=== PATIENT | male | born 1985 | race American Indian/Alaskan Native ===

== ENCOUNTER 2017-05-22 07:49 | Emergency (ER) | payer SELFPAY ==
[2017-05-22 07:59] VITALS: BP 118/71
[2017-05-22] MEDS ORDERED: BSS 1 DROPS, TETRACAINE 0.5% 1 DROPS, FUL-GLO 1 MG OD ONE ×2 (08:30→14:00)
[2017-05-22] MEDS ORDERED: TETRACAINE 0.5% ONE (08:47)
[2017-05-22] MEDS ORDERED: BSS ONE (08:47)
[2017-05-22] MEDS ORDERED: FUL-GLO OP ONE (08:47)
--- NOTE | 2017-05-22 09:10 | Emergency Department Report ---
HPI - General Chief Complaint: Eye Problems Time Seen by Provider: 05/22/17 08:53 - HPI HPI: Room 24 The patient is a 32-year-old male presenting with a chief complaint of left eye pain and swelling. The patient states last night approximately 19:00 last night he was drilling a light fixture when he believes a metal shaving fell down into his left eye. Patient states he attempted to rinse it out at home and then went to sleep. The patient states when he awakened this morning there was pain and swelling in the left eye Location: Left eye Duration: Noticed upon awakening this morning, see above Quality: Pain Severity: Moderate Modifying factors: [see above] Context: [see above] Mode of transportation: [not driving] ED Past Medical Hx - Past Medical History Previous Medical History?: No - Surgical History Past Surgical History?: No - Family History Family history: no significant - Social History Smoking Status: Current Every Day Smoker (1/3 pack per day) Substance Use Type: None (denies illicit drug use), Alcohol (occasional) - Medications Home Medications: Home Medications Medication Instructions Recorded Confirmed Last Taken Type Gentamicin 0.3% Ophth Soln 2 drops OP Q4H #5 ml 05/22/17 Unknown Rx HYDROcodone/APAP 5-325 [Ensign 1 - 2 each PO Q6HR PRN #10 tablet 05/22/17 Unknown Rx 5/325] Ketorolac Tromethamin 0.4%(Nf) 1 drop OS QID PRN #5 ml 05/22/17 Unknown Rx [Acular Ls 0.4% Ophth Nano] ED Review of Systems ROS: Stated complaint: LEFT EYE PAIN Other details as noted in HPI Comment: All other systems reviewed and negative Constitutional: denies: chills, fever Eyes: eye pain, vision change ENT: denies: ear pain, throat pain Respiratory: denies: cough, shortness of breath, wheezing Cardiovascular: denies: chest pain, palpitations Endocrine: no symptoms reported Gastrointestinal: denies: abdominal pain, nausea, diarrhea Genitourinary: denies: urgency, dysuria Musculoskeletal: denies: back pain, joint swelling, arthralgia Skin: denies: rash, lesions Neurological: denies: headache, weakness, paresthesias Psychiatric: denies: anxiety, depression Hematological/Lymphatic: denies: easy bleeding, easy bruising Physical Exam - Physical Exam Vital Signs: Vital Signs 05/22/17 07:56 Temperature 97.6 F Pulse Rate 67 Respiratory 16 Rate Blood Pressure 118/71 O2 Sat by Pulse 100 Oximetry Physical Exam: GENERAL: The patient is well-developed well-nourished male lying on stretcher with obvious swelling to left thigh not appear to be in acute distress. [] HEENT: Normocephalic. Atraumatic. Extraocular motions are intact. Fluorescein uptake in the 2 o'clock position of the left cornea. There is no streaming fluorescein. There is no hyphema. There is no hypopyon. Sclerae injected diffusely. There is inferior and superior palpebral edema. No foreign body seen NECK: Trachea midline CHEST/LUNGS: There is no respiratory distress noted. ABDOMEN: There is no abdominal distention. SKIN: There is left superior and inferior palpebral edema. There is no diaphoresis. NEURO: The patient is awake, alert, and oriented. The patient is cooperative. The patient has normal speech MUSCULOSKELETAL:There is no evidence of acute injury. ED Course Vital Signs 05/22/17 07:56 Temperature 97.6 F Pulse Rate 67 Respiratory 16 Rate Blood Pressure 118/71 O2 Sat by Pulse 100 Oximetry ED Medical Decision Making - Differential Diagnosis corneal abrasion, foreign body Critical care attestation.: If time is entered above; I have spent that time in minutes in the direct care of this critically ill patient, excluding procedure time. ED Disposition Clinical Impression: Left corneal abrasion Disposition: DC-01 TO HOME OR SELFCARE Is pt being admited?: No Does the pt Need Aspirin: No Condition: Stable Instructions: Corneal Abrasion (ED) Additional Instructions: Return to the emergency department immediately should you develop worsening symptoms, fever, inability to tolerate food or liquid or any other concerns. Prescriptions: Gentamicin 0.3% Ophth Soln 2 drops OP Q4H #5 ml HYDROcodone/APAP 5-325 [Ensign 5/325] 1 - 2 each PO Q6HR PRN #10 tablet PRN Reason: Pain Ketorolac Tromethamin 0.4%(Nf) [Acular Ls 0.4% Ophth Nano] 1 drop OS QID PRN #5 ml PRN Reason: Pain Referrals: CAITLIN ALBARRAN MD [Staff Physician] - [facility] Time of Disposition: 10:08
--- NOTE | 2017-05-22 09:41 | Cat Scan Report ---
CT ORBITS WITHOUT CONTRAST: HISTORY: Pain, foreign body, felt metal shaving fall into left eye. TECHNIQUE: Helical CT with sagittal and coronal reformatted images. FINDINGS: The visualized osseous structures are intact without fracture or malalignment. The paranasal sinuses are clear. The nasal septum is midline. The orbital rims are intact. The globes are symmetric with homogeneous density. The retro-orbital fat demonstrates no inflammatory stranding. The extraocular muscles are symmetric. The extraocular muscles and optic nerves demonstrate normal course. IMPRESSION: Normal CT of the orbits. No foreign body is detected on CT.
== END 2017-05-22 10:10 | disposition home or self-care (01) ==
LOC: ED 07:49
DX: S05.02XA Injury of conjunctiva and corneal abrasion without foreign body, left eye, initial encounter (principal); F17.210 Nicotine dependence, cigarettes, uncomplicated; X58.XXXA Exposure to other specified factors, initial encounter; Y93.89 Activity, other specified; Y92.89 Other specified places as the place of occurrence of the external cause; Y99.8 Other external cause status
CPT/HCPCS: 70480; 99283